=== PATIENT | female | born 1940 | race Caucasian/White ===

== ENCOUNTER 2021-11-18 11:41 | Emergency (ER) | payer MEDICARE, OTHER ==
[~2021-11-18] VITALS: Ht 157.5 cm; Wt 71.8 kg
[2021-11-18] MEDS ORDERED: LISI-894 PO (12:05)
[2021-11-18] MEDS ORDERED: SUCR1TAB28 PO (12:05)
[2021-11-18] MEDS ORDERED: SENN8.6T20 PO (12:05)
[2021-11-18] MEDS ORDERED: LORA10TA7 PO (12:05)
[2021-11-18] MEDS ORDERED: CAPE500T14 PO (12:05)
[2021-11-18] MEDS ORDERED: VENL-53 PO (12:05)
[2021-11-18] MEDS ORDERED: MECL-134 PO (12:05)
[2021-11-18] MEDS ORDERED: ALLO-97 PO (12:05)
[2021-11-18] MEDS ORDERED: LOPE-232 PO (12:05)
[2021-11-18] MEDS ORDERED: ONDA-104 PO (12:05)
[2021-11-18 12:43] LABS: BASOPHILS % (AUTO) 0.8 % (0.0-2.0); EOSINOPHILS % (AUTO) 1.5 % (1.0-6.0); HEMATOCRIT 27.1 % (36-46); HEMOGLOBIN 8.3 g/dL (12.0-16.0); LYMPHOCYTES % (AUTO) 22.7 % (22.0-44.0); MEAN CORPUSCULAR HEMOGLOBIN 24.1 pg (26.0-34.0); MEAN CORPUSCULAR HGB CONC 30.7 G/dL (31.0-37.0); MEAN CORPUSCULAR VOLUME 79 fL (80-100); MONOCYTES # (AUTO) 0.5 K/uL (0.1-1.0); MONOCYTES % (AUTO) 5.4 % (2.0-9.0); NEUTROPHILS # (AUTO) 6.2 K/uL (1.8-7.7); NEUTROPHILS % (AUTO) 69.6 % (40.0-70.0); PLATELET COUNT (AUTO) 381 K/uL (150-450); RED BLOOD CELL COUNT(AUTO) 3.45 MIL/uL (4.00-5.20); RED CELL DISTRIBUTION WIDTH 21.3 % (11.5-14.5)
[2021-11-18 12:53] LABS: CALCIUM, TOTAL 9.2 mg/dL (8.8-10.5); CREATININE 1.21 mg/dL (0.60-1.30); POTASSIUM 4.4 mmol/L (3.5-5.1)
[2021-11-18 12:58] LABS: ALBUMIN 3.4 g/dL (3.4-5.0); BILIRUBIN,TOTAL 0.4 mg/dL (0.1-1.0); PHOSPHORUS 3.9 mg/dL (2.5-4.9); TOTAL PROTEIN, SERUM 8.4 g/dL (6.4-8.2)
[2021-11-18 13:45] VITALS: BP 113/63
== END 2021-11-18 14:08 | disposition home or self-care (01) ==
LOC: EMS 11:41
DX: D64.9 Anemia, unspecified (principal); J44.9 Chronic obstructive pulmonary disease, unspecified; Z79.899 Other long term (current) drug therapy
CPT/HCPCS: 70450; 80053; 83735; 84100; 84484; 85025; 86850; 86870; 86900; 86901; 93005; 99285

== ENCOUNTER 2021-12-09 17:15 | Inpatient (IN) | payer MEDICARE, OTHER ==
[~2021-12-09] VITALS: Ht 157.5 cm; Wt 72.0 kg
[~2021-12-09 17:15] MED LIST: ALLO-97 PO; CAPE500T14 PO; LISI-894 PO; LOPE-232 PO; LORA10TA7 PO; MECL-134 PO; ONDA-104 PO; SENN8.6T20 PO; SUCR1TAB28 PO; VENL-53 PO
[2021-12-09] MEDS ORDERED: INSULIN SQ (17:47)
[2021-12-09] MEDS ORDERED: ACETAMINOPHEN 325 MG TABLET PO ONE (20:30)
[2021-12-09] MEDS ORDERED: GABA-529 PO (20:30)
[2021-12-09] MEDS ORDERED: CIPR500T10 PO (20:30)
[2021-12-09] MEDS ORDERED: MIRT-92 PO (20:30)
[2021-12-09] MEDS ORDERED: ESCI20TA37 PO (20:30)
[2021-12-09] MEDS ORDERED: ATOR10TA69 PO (20:30)
[2021-12-09] MEDS ORDERED: INSU100I15 SQ (20:30)
[2021-12-09] MEDS ORDERED: METF-1211 PO (20:30)
[2021-12-09] MEDS ORDERED: LEVO125T95 PO (20:30)
[2021-12-09] MEDS ORDERED: CHOL25TA4 PO (20:30)
[2021-12-09 20:39] LABS: BASOPHILS % (AUTO) 0.8 % (0.0-2.0); EOSINOPHILS % (AUTO) 2.3 % (1.0-6.0); HEMATOCRIT 22.2 % (36-46); LYMPHOCYTES # (AUTO) 1.6 K/uL (1.0-4.8); LYMPHOCYTES % (AUTO) 23.2 % (22.0-44.0); MEAN CORPUSCULAR HEMOGLOBIN 22.6 pg (26.0-34.0); MEAN CORPUSCULAR HGB CONC 30.5 G/dL (31.0-37.0); MEAN CORPUSCULAR VOLUME 74 fL (80-100); MONOCYTES # (AUTO) 0.8 K/uL (0.1-1.0); MONOCYTES % (AUTO) 11.2 % (2.0-9.0); NEUTROPHILS # (AUTO) 4.3 K/uL (1.8-7.7); NEUTROPHILS % (AUTO) 62.5 % (40.0-70.0); PLATELET COUNT (AUTO) 337 K/uL (150-450); RED BLOOD CELL COUNT(AUTO) 2.99 MIL/uL (4.00-5.20); RED CELL DISTRIBUTION WIDTH 21.8 % (11.5-14.5)
[2021-12-09 20:41] LABS: HEMOGLOBIN 6.8 g/dL (12.0-16.0)
[2021-12-09 20:49] LABS: CALCIUM, TOTAL 8.8 mg/dL (8.8-10.5); CREATININE 1.13 mg/dL (0.60-1.30); POTASSIUM 3.5 mmol/L (3.5-5.1)
[2021-12-09 20:57] LABS: ALBUMIN 2.9 g/dL (3.4-5.0); BILIRUBIN,TOTAL 0.3 mg/dL (0.1-1.0); TOTAL PROTEIN, SERUM 7.4 g/dL (6.4-8.2)
[2021-12-09] MEDS ORDERED: ZOLPIDEM TARTRATE 5 MG TABLET PO PRN (23:45)
[2021-12-09] MEDS ORDERED: BISACODYL 10 MG RECTAL RECTAL SUPPOSITORY PR PRN (23:45)
[2021-12-09] MEDS ORDERED: ONDANSETRON HCL 4 MG/2 ML VIAL IVP PRN (23:45)
[2021-12-09] MEDS ORDERED: MORPHINE SULFATE 2 MG/ML SYRINGE IVP PRN (23:45)
[2021-12-09] MEDS ORDERED: MAGNESIUM HYDROXIDE SUSPENSION 30 ML UDCUP PO PRN (23:45)
[2021-12-09] MEDS ORDERED: HYDROCODONE/ACETAMINOPHEN 5-325 MG TABLET PO PRN (23:45)
[2021-12-10] VITALS (19 sets, daily range): BP systolic 97–127; BP diastolic 44–62
[2021-12-10 02:17] LABS: COVID AG,FIA SOURCE NASAL SWAB
[2021-12-10] MEDS: LEVOTHYROXINE SODIUM 125 MCG TABLET PO SCH (06:35)
[2021-12-10] MEDS: ACETAMINOPHEN 325 MG TABLET PO PRN (06:35)
[2021-12-10] MEDS: DOCUSATE SODIUM 100 MG CAPSULE PO SCH ×2 (09:00→20:30)
[2021-12-10] MEDS: GABAPENTIN 100 MG CAPSULE PO SCH ×2 (09:19→22:48)
[2021-12-10] MEDS: CHOLECALCIFEROL (VIT D3) 1,000 UNITS [25 MCG] TABLET PO SCH (09:19)
[2021-12-10] MEDS: HEPARIN SODIUM,PORCINE 5,000 UNITS/ML VIAL SQ SCH ×4 (09:19→22:48)
[2021-12-10] MEDS: MetFORMIN HCL 500 MG TABLET PO SCH ×3 (09:19→18:23)
[2021-12-10] MEDS: VENLAFAXINE HCL 37.5 MG TABLET PO SCH (09:21)
[2021-12-10] MEDS: PANTOPRAZOLE SODIUM 40 MG DR TABLET PO SCH (09:21)
[2021-12-10] MEDS: SUCRALFATE 1 GM TABLET PO SCH ×4 (09:21→20:30)
[2021-12-10] MEDS: ESCITALOPRAM OXALATE 20 MG TABLET PO SCH (09:21)
[2021-12-10] MEDS: LISINOPRIL 20 MG TABLET PO SCH (09:21)
[2021-12-10] MEDS: LORATADINE 10 MG TABLET PO SCH (10:25)
[2021-12-10] MEDS: ALLOPURINOL 100 MG TABLET PO SCH (10:25)
[2021-12-10] MEDS: MECLIZINE HCL 25 MG TABLET PO SCH (10:25)
[2021-12-10] MEDS ORDERED: ATORVASTATIN CALCIUM 10 MG TABLET PO SCH (21:00)
[2021-12-11 00:18] LABS: EOSINOPHILS % (AUTO) 1.8 % (1.0-6.0); HEMATOCRIT 28.9 % (36-46); HEMOGLOBIN 9.1 g/dL (12.0-16.0); LYMPHOCYTES # (AUTO) 1.7 K/uL (1.0-4.8); LYMPHOCYTES % (AUTO) 22.8 % (22.0-44.0); MEAN CORPUSCULAR HEMOGLOBIN 24.2 pg (26.0-34.0); MEAN CORPUSCULAR HGB CONC 31.5 G/dL (31.0-37.0); MEAN CORPUSCULAR VOLUME 77 fL (80-100); MONOCYTES # (AUTO) 0.8 K/uL (0.1-1.0); MONOCYTES % (AUTO) 10.7 % (2.0-9.0); NEUTROPHILS # (AUTO) 4.7 K/uL (1.8-7.7); NEUTROPHILS % (AUTO) 63.7 % (40.0-70.0); PLATELET COUNT (AUTO) 315 K/uL (150-450); RED BLOOD CELL COUNT(AUTO) 3.76 MIL/uL (4.00-5.20); RED CELL DISTRIBUTION WIDTH 22.8 % (11.5-14.5)
[2021-12-11 05:12] VITALS: BP 106/52
[2021-12-11] MEDS: LEVOTHYROXINE SODIUM 125 MCG TABLET PO SCH (06:00)
[2021-12-11 06:44] LABS: BASOPHILS % (AUTO) 0.5 % (0.0-2.0); HEMATOCRIT 28.4 % (36-46); HEMOGLOBIN 8.9 g/dL (12.0-16.0); LYMPHOCYTES # (AUTO) 1.7 K/uL (1.0-4.8); LYMPHOCYTES % (AUTO) 24.5 % (22.0-44.0); MEAN CORPUSCULAR HGB CONC 31.2 G/dL (31.0-37.0); MEAN CORPUSCULAR VOLUME 77 fL (80-100); MONOCYTES # (AUTO) 0.7 K/uL (0.1-1.0); MONOCYTES % (AUTO) 9.3 % (2.0-9.0); NEUTROPHILS # (AUTO) 4.5 K/uL (1.8-7.7); NEUTROPHILS % (AUTO) 63.7 % (40.0-70.0); PLATELET COUNT (AUTO) 326 K/uL (150-450); RED BLOOD CELL COUNT(AUTO) 3.69 MIL/uL (4.00-5.20); RED CELL DISTRIBUTION WIDTH 22.5 % (11.5-14.5)
[2021-12-11 08:09] VITALS: BP 107/67
[2021-12-11] MEDS: DOCUSATE SODIUM 100 MG CAPSULE PO SCH (08:21)
[2021-12-11] MEDS: ALLOPURINOL 100 MG TABLET PO SCH (08:22)
[2021-12-11] MEDS: VENLAFAXINE HCL 37.5 MG TABLET PO SCH (08:22)
[2021-12-11] MEDS: MetFORMIN HCL 500 MG TABLET PO SCH (08:22)
[2021-12-11] MEDS: SUCRALFATE 1 GM TABLET PO SCH ×2 (08:22→12:45)
[2021-12-11] MEDS: HEPARIN SODIUM,PORCINE 5,000 UNITS/ML VIAL SQ SCH (08:22)
[2021-12-11] MEDS: CHOLECALCIFEROL (VIT D3) 1,000 UNITS [25 MCG] TABLET PO SCH (08:22)
[2021-12-11] MEDS: MECLIZINE HCL 25 MG TABLET PO SCH (08:22)
[2021-12-11] MEDS: LORATADINE 10 MG TABLET PO SCH (08:22)
[2021-12-11] MEDS: PANTOPRAZOLE SODIUM 40 MG DR TABLET PO SCH (08:22)
[2021-12-11] MEDS: LISINOPRIL 20 MG TABLET PO SCH (08:22)
[2021-12-11] MEDS: ESCITALOPRAM OXALATE 20 MG TABLET PO SCH (08:22)
[2021-12-11] MEDS: GABAPENTIN 100 MG CAPSULE PO SCH (08:26)
[2021-12-11 12:15] VITALS: BP 127/67
[2021-12-11] MEDS: ACETAMINOPHEN 325 MG TABLET PO PRN (12:47)
== END 2021-12-11 16:00 | disposition home or self-care (01) | DRG 376 ==
LOC: EMS 17:21 → 5N 12-10 02:56
PROVIDERS: ADMIT Internal Medicine; ATTEND Internal Medicine
PROC: 30233N1 Transfusion of Nonautologous Red Blood Cells into Peripheral Vein, Percutaneous Approach (ICD-10-PCS; principal; 2021-12-10)
DX: C18.9 Malignant neoplasm of colon, unspecified (principal); D63.8 Anemia in other chronic diseases classified elsewhere; E03.9 Hypothyroidism, unspecified; E11.9 Type 2 diabetes mellitus without complications; Z20.822 Contact with and (suspected) exposure to COVID-19; E78.5 Hyperlipidemia, unspecified; I10 Essential (primary) hypertension; T45.1X5A Adverse effect of antineoplastic and immunosuppressive drugs, initial encounter; J44.9 Chronic obstructive pulmonary disease, unspecified; Z90.49 Acquired absence of other specified parts of digestive tract; Y92.89 Other specified places as the place of occurrence of the external cause; Z79.899 Other long term (current) drug therapy; Z79.4 Long term (current) use of insulin
CPT/HCPCS: 74022; 80053; 82271; 85025; 86850; 86870; 86900; 86901; 86922; 99285; J1644; P9016

== ENCOUNTER 2022-01-30 12:57 | Emergency (ER) | payer MEDICARE, OTHER ==
[~2022-01-30] VITALS: Ht 157.5 cm; Wt 59.1 kg
[~2022-01-30 12:57] MED LIST changes: +ATOR10TA69 PO; -CAPE500T14 PO; +CHOL25TA4 PO; +ESCI20TA37 PO; +GABA-529 PO; +INSU100I15 SQ; +LEVO125T95 PO; +METF-1211 PO; +MIRT-92 PO
[2022-01-30 13:45] LABS: BASOPHILS % (AUTO) 0.5 % (0.0-2.0); EOSINOPHILS % (AUTO) 0.6 % (1.0-6.0); HEMOGLOBIN 9.1 g/dL (12.0-16.0); LYMPHOCYTES # (AUTO) 1.5 K/uL (1.0-4.8); MEAN CORPUSCULAR HEMOGLOBIN 23.2 pg (26.0-34.0); MEAN CORPUSCULAR HGB CONC 31.2 G/dL (31.0-37.0); MEAN CORPUSCULAR VOLUME 74 fL (80-100); MONOCYTES # (AUTO) 1.1 K/uL (0.1-1.0); MONOCYTES % (AUTO) 8.7 % (2.0-9.0); NEUTROPHILS # (AUTO) 10.1 K/uL (1.8-7.7); NEUTROPHILS % (AUTO) 78.2 % (40.0-70.0); PLATELET COUNT (AUTO) 539 K/uL (150-450); RED BLOOD CELL COUNT(AUTO) 3.91 MIL/uL (4.00-5.20); RED CELL DISTRIBUTION WIDTH 23.4 % (11.5-14.5)
[2022-01-30 15:44] VITALS: BP 130/60
== END 2022-01-30 15:45 | disposition home or self-care (01) ==
LOC: EMS 12:58
DX: D64.9 Anemia, unspecified (principal); J44.9 Chronic obstructive pulmonary disease, unspecified; E11.9 Type 2 diabetes mellitus without complications; Z85.038 Personal history of other malignant neoplasm of large intestine; Z79.84 Long term (current) use of oral hypoglycemic drugs; Z79.899 Other long term (current) drug therapy
CPT/HCPCS: 82962; 85025; 86850; 86870; 86900; 86901; 99283